=== PATIENT | male | born 1970 | race Caucasian/White ===

== ENCOUNTER 2016-11-12 21:12 | Emergency (ER) | payer OTHER, MEDICARE | END 2016-11-13 00:17 | disposition home or self-care (01) | LOC: ER 21:12 | DX: S30.810A Abrasion of lower back and pelvis, initial encounter (principal); S00.81XA Abrasion of other part of head, initial encounter; S30.0XXA Contusion of lower back and pelvis, initial encounter; S00.83XA Contusion of other part of head, initial encounter; Y04.0XXA Assault by unarmed brawl or fight, initial encounter; I10 Essential (primary) hypertension; Z79.899 Other long term (current) drug therapy | CPT/HCPCS: 72100; 96372; 99070; 99283; 99283-25 ==